=== PATIENT | female | born 1950 | race Caucasian/White ===

== ENCOUNTER → 2020-10-01 | Outpatient (CLI) | payer MEDICARE ==
[~2020-10-01] MED LIST: NONE PER PT
[2020-10-01 12:55] LABS: BASOPHILS % (AUTO) 1 % (0-1); EOSINOPHILS % (AUTO) 1 % (1-7); LYMPHOCYTES % (AUTO) 21 % (22-44); MEAN CORPUSCULAR HEMOGLOBIN 34.2 pg (27.0-34.8); MEAN CORPUSCULAR HGB CONC 34.4 g/dL (32.4-35.8); MEAN PLATELET VOLUME 7.2 fL (7.4-10.4); MONOCYTES % (AUTO) 11 % (2-9); NEUTROPHILS % (AUTO) 66 % (42-75); PLATELET COUNT 432 x10^3/uL (130-400); RED BLOOD COUNT 4.37 x10^6/uL (3.82-5.3); RED CELL DISTRIBUTION WIDTH 12.8 % (9.6-15.2)
[2020-10-01 13:00] LABS: MICROSCOPIC NOT IND
[2020-10-01 13:03] LABS: ALBUMIN 3.6 g/dL (3.4-5.0); ANION GAP 8 mmol/L (5-15); CALCIUM 8.9 mg/dL (8.5-10.1); CHLORIDE 103 mmol/L (98-107)
[2020-10-01 13:05] LABS: INTERNATIONAL NORMALIZED RATIO 0.96 (0.93-1.1); PROTHROMBIN TIME 10.3 Seconds (9.6-11.5)
[2020-10-01 13:07] LABS: ALANINE AMINOTRANSFERASE 28 U/L (12-78); ALKALINE PHOSPHATASE 76 U/L (45-117); BILIRUBIN,TOTAL 0.7 mg/dL (0.2-1.0); TOTAL PROTEIN 7.1 g/dL (6.4-8.2)
== END | disposition home or self-care (01) ==
LOC: STAR 11:53 → MERGE 11:53
PROVIDERS: ATTEND Neurological Surgery
DX: Z01.810 Encounter for preprocedural cardiovascular examination (principal); Z01.811 Encounter for preprocedural respiratory examination; Z01.812 Encounter for preprocedural laboratory examination; S13.130A Subluxation of C2/C3 cervical vertebrae, initial encounter; M47.12 Other spondylosis with myelopathy, cervical region; M48.02 Spinal stenosis, cervical region; R82.90 Unspecified abnormal findings in urine; R94.31 Abnormal electrocardiogram [ECG] [EKG]; R79.1 Abnormal coagulation profile; I49.3 Ventricular premature depolarization; J43.9 Emphysema, unspecified; M48.54XA Collapsed vertebra, not elsewhere classified, thoracic region, initial encounter for fracture; Z20.822 Contact with and (suspected) exposure to COVID-19; X58.XXXA Exposure to other specified factors, initial encounter; Y93.89 Activity, other specified; Y92.89 Other specified places as the place of occurrence of the external cause; Y99.8 Other external cause status
CPT/HCPCS: 36415; 71046; 72050; 80053; 81003; 85025; 85610; 85730; 93005; U0003; U0005

== ENCOUNTER 2020-10-05 08:37 | Inpatient (IN) | payer MEDICARE ==
[~2020-10-05] VITALS: Ht 157.5 cm; Wt 51.4 kg
[2020-10-05 06:46] VITALS: BP 168/97
[~2020-10-05 08:37] MED LIST changes: +ACETAMINOPHEN 325 MG TABLET PO PRN; +BUPIVACAINE/PF 0.5% ONE; +CHLORHEXIDINE 15 ML UDC ONE; +CHLORHEXIDINE 15 ML UDC PO ONE; +EPINEPHRINE 1 MG/ML, 1ML ONE; +FENTANYL PF 100 MCG/2ML IV PRN; +FENTANYL PF 250 MCG/5ML ONE; +GENTAMICIN 80 MG/2 ML ONE; +HALOPERIDOL 5 MG/ML IV PRN; +HYDROmorphone 1 MG/ML, 1ML INJ IVPush PRN; +LABETALOL 5MG/ML, 20ML IV PRN; +LACTATED RINGERS 1,000 ML IV SCH; +MEPERIDINE/PF 25MG/0.5ML IVPush PRN; +MIDAZOLAM 1 MG/ML, 2ML ONE; +OXYcodone 5 MG/5 ML ORAL.SOL UDC PO PRN; +PROMETHAZINE 25 MG/ML, 1ML IVPush PRN; +PROPOFOL 100 ML ONE; +PROPOFOL 50 ML ONE; +VANCOMYCIN 1,000 MG ONE; +hydrALAzine 20 MG/ML, 1ML IV PRN; +morphine SULFATE 10 MG/ML, 1ML IVPush PRN
[2020-10-05] MEDS ORDERED: METHOCARBAMOL 1,000 MG in DEXTROSE 5% 100 ML IV ONE (11:00)
[2020-10-05] MEDS ORDERED: DIPHENHYDRAMINE 50 MG/ML, 1ML IVPush PRN (11:00)
[2020-10-05] MEDS ORDERED: DIPHENHYDRAMINE 50 MG/ML, 1ML IM PRN (11:00)
[2020-10-05] MEDS ORDERED: MAGNESIUM HYDROXIDE 8%, 30ML UDC PO PRN (11:00)
[2020-10-05] MEDS ORDERED: BISACODYL 10 MG SUPP PR PRN (11:00)
[2020-10-05] MEDS ORDERED: HYDROmorphone 1 MG/ML, 1ML INJ IVPush PRN (11:00)
[2020-10-05] MEDS ORDERED: SENNA/DOCUSATE TABLET PO PRN (11:00)
[2020-10-05] MEDS ORDERED: PROMETHAZINE 25 MG/ML, 1ML IM PRN (11:00)
[2020-10-05] MEDS ORDERED: LABETALOL 5MG/ML, 20ML IVPush PRN (11:00)
[2020-10-05] MEDS ORDERED: PHARMACY MAY ADJ FOR RENAL FX MC PRN (11:00)
[2020-10-05] MEDS ORDERED: HYDROcodone/APAP 10/325 MG TABLET PO PRN (12:12)
[2020-10-05] MEDS ORDERED: CEFAZOLIN PMX 1GM/50ML 50 ML IVPB SCH (12:12)
[2020-10-05] MEDS ORDERED: ONDANSETRON 2MG/ML, 2ML IVPush PRN (12:15)
[2020-10-05 12:16] VITALS: BP 145/89
[2020-10-05] MEDS ORDERED: DIPHENHYDRAMINE 50 MG CAPSULE PO PRN (12:16)
[2020-10-05] MEDS: D5%-0.9% NACL+KCL 20MEQ 1,000 ML IV SCH (13:13)
[2020-10-05] MEDS: HYDROcodone/APAP 5/325 TABLET PO PRN (13:14)
[2020-10-05 14:45] VITALS: BP 125/80
[2020-10-05] MEDS: CEFAZOLIN PMX 1GM/50ML 50 ML IVPB SCH ×2 (16:46→23:44)
[2020-10-05 18:46] VITALS: BP 125/80
[2020-10-06 03:10] VITALS: BP 132/80
[2020-10-06] MEDS ORDERED: ENOXAPARIN 40 MG/0.4 ML SQ SCH (06:00)
[2020-10-06] MEDS: HYDROcodone/APAP 5/325 TABLET PO PRN (06:47)
[2020-10-06 07:00] VITALS: BP 132/83
[2020-10-06] MEDS: D5%-0.9% NACL+KCL 20MEQ 1,000 ML IV SCH (08:37)
[2020-10-06] MEDS ORDERED: HYDR-2214 PO (10:45)
[2020-10-06] MEDS ORDERED: METH-640 PO (10:45)
[2020-10-07] MEDS ORDERED: METHOCARBAMOL 750 MG TABLET PO SCH (19:00)
== END 2020-10-06 12:10 | disposition home or self-care (01) | DRG 472 ==
LOC: 4NE 10:58 → DCLOUNGE 10-06 12:05
PROVIDERS: ADMIT Neurological Surgery; ATTEND Neurological Surgery
PROC: 0RG20A0 Fusion of 2 or more Cervical Vertebral Joints with Interbody Fusion Device, Anterior Approach, Anterior Column, Open Approach (ICD-10-PCS; 2020-10-05)
PROC: 0PB30ZZ Excision of Cervical Vertebra, Open Approach (ICD-10-PCS; 2020-10-05)
PROC: 00NW0ZZ Release Cervical Spinal Cord, Open Approach (ICD-10-PCS; 2020-10-05)
PROC: 01N10ZZ Release Cervical Nerve, Open Approach (ICD-10-PCS; 2020-10-05)
PROC: 4A11X4G Monitoring of Peripheral Nervous Electrical Activity, Intraoperative, External Approach (ICD-10-PCS; 2020-10-05)
PROC: 0RT30ZZ Resection of Cervical Vertebral Disc, Open Approach (ICD-10-PCS; principal; 2020-10-05 07:00)
DX: M48.02 Spinal stenosis, cervical region (principal); M47.12 Other spondylosis with myelopathy, cervical region; M43.12 Spondylolisthesis, cervical region; M85.80 Other specified disorders of bone density and structure, unspecified site; Z87.891 Personal history of nicotine dependence
CPT/HCPCS: 72040; 95938; 95941; C1713; G0378; J0171; J0690; J1650; J2250; J2704; J3010; J3370; C1762; C1889; J1580; J2800; J3480; J7120